=== PATIENT | female | born 1945 | race Caucasian/White ===

== ENCOUNTER 2017-04-19 13:45 | Inpatient (IN) | payer OTHER ==
[~2017-04-19] VITALS: Ht 160 cm; Wt 135.4 kg
--- NOTE | ~2017-04-19 | PR ---
[place], [place] PROGRESS NOTE NAME: VIK THOMAS [facility] #: [id number] UNIT #: [id number] ROOM: 525 DOCTOR: QI ELLSWORTH MD BIRTHDATE: [birth year] DOS: 04/23/2017 SUBJECTIVE: The patient is not having any new problems. OBJECTIVE: VITAL SIGNS: Blood pressure is 119/53, pulse of 84, respirations 18, temperature 98.7. LUNGS: Clear. HEART: Regular. ABDOMEN: Obese, soft, nontender. EXTREMITIES: Without any edema. ASSESSMENT AND PLAN: 1. Acute exacerbation of chronic obstructive pulmonary disease, stable and improved. 2. Morbid obesity. Advised weight loss. May require a sleep study as an outpatient. 3. Benign hypertension, controlled with acute diastolic congestive heart failure, resolved. Repeat chest x-ray is clearer. The plan is to discharge her to home today. QI ELLSWORTH MD CM:PNTRANS [id number] QI ELLSWORTH MD 04/23/17 0820 interface
--- NOTE | ~2017-04-19 | PR ---
[place], [place] PROGRESS NOTE NAME: VIK THOMAS UNIT #: [id number] ROOM: 525 DOCTOR: RUDOLPH QUISPE MD BIRTHDATE: [birth year] DOS: 04/21/2017 PULMONARY PROGRESS NOTE SUBJECTIVE: She has been noted comfortable at this time, was ordered BiPAP for this patient yesterday. The patient not able to use the BiPAP because of the difficulty of the mask fitting. The patient had a CTA of the chest, which was ordered by the Cardiology Services as well, does not show any evidence of pulmonary embolism. OBJECTIVE: VITAL SIGNS: For the patient which were recorded showed the temperature of the patient noted as normal, respiratory rate 22, heart rate 91, blood pressure 137/58. Pulse oxygen saturation of the patient noted on 3 liters nasal cannula 96% saturation. HEENT: Examination shows head was atraumatic. NECK: Supple. Chronic obesity. CARDIOVASCULAR: S1, S2 is audible. LUNGS: The patient was noted with moderate decreased breath sounds noted in the lungs bilaterally with expiratory wheezing. There were no crackles. ABDOMEN: Soft, nontender. EXTREMITIES: Shows chronic obesity. LABORATORY DATA: D-dimer yesterday noted 1.55. The CT of the chest does not show any acute abnormality including any evidence of pulmonary embolism. Arterial blood gas that was done yesterday, 04/20/2017, shows pH of 7.48, pCO2 of 42, pO2 of 59 on room air. IMPRESSION: 1. The patient who has been currently noted with acute exacerbation of chronic obstructive pulmonary disease with acute bronchitis as well as the congestive heart failure with a diastolic dysfunction. 2. Suspected obstructive sleep apnea disorder. PLAN OF MANAGEMENT: She will be continued on the current management plan. She was ordered the senior java web developer mask to be used for the BiPAP. Continue in the meantime bronchodilators with oxygen supplementation, current antibiotics, bronchodilators and IV steroids. Supportive plan and management and care. [place], [place] PROGRESS NOTE NAME: VIK THOMAS UNIT #: [id number] ROOM: 525 DOCTOR: RUDOLPH QUISPE MD BIRTHDATE: [birth year] RUDOLPH BARRIGA MD CM:CARLINETRANS [id number] RUDOLPH BISHOP MD 04/21/17 1031 interface
--- NOTE | ~2017-04-19 | DS ---
[place], [place] DISCHARGE SUMMARY NAME: VIK THOMAS UNIT #: [id number] ROOM: [facility] DOCTOR: JODEE ANGELQI BIRTHDATE: [birth year] DOS: 04/23/2017 DISCHARGE DIAGNOSES: 1. Acute diastolic congestive heart failure. 2. Acute respiratory distress syndrome. 3. Chronic respiratory failure, oxygen dependent. 4. Acute exacerbation of chronic obstructive pulmonary disease. 5. Benign hypertension with LVH. 6. Type 2 diabetes mellitus, diet controlled. 7. Major depression, mild, recurrent. 8. Generalized anxiety disorder. 9. Primary insomnia. DISCHARGE MEDICATIONS: Daliresp 500 mcg daily, Isordil 30 daily, losartan 100 daily, Lasix 40 daily, prednisone 5 tapering dose, zolpidem 5 at bedtime, Xanax 1 mg twice a day, Paxil 10 daily, clonidine 0.1 at bedtime, Requip 1 mg at bedtime, DuoNeb q.6h, Spiriva 2 puffs twice daily, Singulair 10 daily, if she is unable to afford the Daliresp. HOSPITAL COURSE: This 71-year-old patient is very well known to us, comes in with complaints of increasing shortness of breath. Please refer to the H and P for details. She was diagnosed with acute diastolic CHF, was admitted, was placed on diuretics. Cardiology consultation was obtained. Echocardiogram was ordered, which showed LVH with no other major valvular pathology. Cardiology also ordered a CT angiogram, which was negative for PE. Pressures have been controlled and with diuretics, the CHF has resolved, and repeat chest x-ray is clearer. She also had acute exacerbation of COPD, was placed on IV steroids, breathing treatments. Dr. Tinoco was consulted who agreed on the current treatment plan. He did recommend that the patient undergo a sleep study as an outpatient to rule out obstructive sleep apnea. The patient is otherwise stable and is not having any new problems. The plan is to discharge her to home today. I have decided to place her on Daliresp for her underlying COPD, but it might be too expensive and she may not be able to afford. If that is the case, she is advised to go back on Singulair. [place], [place] DISCHARGE SUMMARY NAME: VIK THOMAS UNIT #: [id number] ROOM: 525 DOCTOR: QI ELLSWORTH MD BIRTHDATE: [birth year] QI ELLSWORTH MD CM:BAILEE 0 9 QI ELLSWORTH MD 04/23/17829 interface
--- NOTE | ~2017-04-19 | CON ---
[place], [place] REPORT OF CONSULTATION NAME: VIK THOMAS [facility] #: [id number] UNIT #: [id number] ROOM: 525 DOCTOR: SANDRA LIM MD BIRTHDATE: [birth year] DOS: REQUESTING PHYSICIAN: Dr. Neetu Griffith. REASON FOR CONSULTATION: Chest pain. ASSESSMENT: 1. Current presentation with shortness of breath, dyspnea on exertion, and severe chronic obstructive pulmonary disease exacerbation. 2. Complaint of chest pain, heaviness, tightness radiating to the back. 3. Morbid obesity. 4. Hypertension. 5. Hyperlipidemia. 6. Previous history of tobacco abuse. 7. Early family history of heart disease. PLAN: 1. Cycle cardiac enzymes. 2. Proceed with an echocardiogram. 3. Imdur 30 mg. 4. Lipid management for an LDL less than 70 mg/dL. 5. We will consider a Lexiscan stress test after the patient's lungs status improves and can be done as an outpatient. HISTORY AND PHYSICAL: The patient is a pleasant 71-year-old female unknown to our practice, who was referred by Dr. Griffith for further evaluation of complaint of chest pain, heaviness, tightness. Apparently, the patient has been having severe shortness of breath, dyspnea on exertion, similar to her previous COPD exacerbation for the past 2 weeks. The symptoms got worse and the patient finally presented to the hospital, wants to found out COPD exacerbation status. Today, the patient started complaining of some heaviness, tightness. It did reach 5/10, it does radiate straight to the back with no associated nausea, vomiting or diaphoresis. No relation to activity. It did occur at rest. The patient never had such complaint in the past. She is also almost completely bedridden. No current symptomatic palpitation or any associated dizziness, lightheadedness, or near syncope. The patient does have previous history of symptomatic palpitation or racing heartbeats. The patient usually sleeps upright with definite PND and orthopnea should the patient attempt to lay flat. The patient admits to significant chills over the past few months along with night sweats, but no fevers. Surprisingly, he maintains good appetite. No reported weight loss. Again, the patient appeared to be [employer] almost class 3-4. PAST MEDICAL HISTORY: As detailed above. SOCIAL HISTORY: The patient quit smoking 2 years ago. Prior to that, she smoked almost for 50 years. No heavy alcohol or illicit drug abuse. FAMILY HISTORY: The patient's father had myocardial infarction, congestive heart failure in his 70s. Her mother in her 60s of myocardial infarction. [place], [place] REPORT OF CONSULTATION NAME: VIK THOMAS UNIT #: [id number] ROOM: [facility] DOCTOR: SANDRA LIM MD BIRTHDATE: [birth year] Her father also in his early 60s of congestive heart failure. CURRENT MEDICATIONS: Singulair, Z-GINGER, Axone, Cozaar, hydrochlorothiazide, Ambien, Requip, Solu-Medrol, Catapres, Pulmicort, Xanax, and Lasix. ALLERGIES: The patient has no known drug allergies. REVIEW OF SYSTEMS: Currently, the patient denies any headache, diplopia, or blurry vision. Admits to chills, night sweats, but no fevers. No abdominal pain, no bright blood per rectum, no tarry stools. Admits to joint pain and muscular pain. No anxiety, no depression. No polyuria, no polydipsia, no skin rash. Review of other systems has been negative. PHYSICAL EXAMINATION: GENERAL: The patient is alert, oriented x 3, quite pleasant. The patient sitting up in bed, appeared to be in moderate distress mainly due to shortness of breath, no current chest tightness or heaviness. VITAL SIGNS: Blood pressure 154/70, heart rate 81, respiratory rate of 24, temperature 98.3. HEENT: Extraocular muscles intact. Pupils equal, round, reactive to light. Conjunctivae: No pallor. Throat: No petechiae. NECK: Good carotid upstroke. Faint bruit could be heard on both carotids. No lymphadenopathy, no thyromegaly. HEART: S1, S2 with a systolic ejection murmur right upper sternal border and also holosystolic murmur left upper sternal border. No rub, no sternal heave, loud P2. CHEST AND BACK: No deformities. LUNGS: Severe decrease in air movement. There is significant end expiratory wheezing. There is minimal rhonchi could be heard at the base bilateral. ABDOMEN: Morbidly obese, soft, nontender. Present bowel sounds. Unable to appreciate any masses or bruits. This is a very limited exam. EXTREMITIES: Lower extremities: There is mild 1-2/4 edema on the left lower extremity with mild edema on the right. He has faint distal pulses. NEUROLOGIC: Nonfocal. SKIN: No significant rash. LABORATORY DATA: White count 6.4, hemoglobin 11.8, potassium is 3.7, GFR more than 60. [place], [place] REPORT OF CONSULTATION NAME: VIK THOMAS UNIT #: [id number] ROOM: [facility] DOCTOR: SANDRA LIM MD BIRTHDATE: [birth year] SANDRA LIM MD CM:CONSTR:REPORT OF CONSULTATION 1242 04/20/17 1803 interface
--- NOTE | ~2017-04-19 | PR ---
[place], [place] PROGRESS NOTE NAME: VIK THOMAS [facility] #: [id number] UNIT #: [id number] ROOM: 525 DOCTOR: QI ELLSWORTH MD BIRTHDATE: [birth year] DOS: SUBJECTIVE: The patient is feeling good, does not have any new complaints this morning, shortness of breath is much better. She has not had any chest pains. OBJECTIVE: VITAL SIGNS: Graphic trend shows pressure of 117/56, pulse of 92, respirations 20, temperature 97.5. LUNGS: Clear. HEART: Regular this morning. ABDOMEN: Obese. EXTREMITIES: Without any edema. ASSESSMENT AND PLAN: 1. Acute diastolic congestive heart failure, clinically much improved. We will arrange for a repeat chest x-ray to make sure that the congestive heart failure is clearing. 2. Acute respiratory distress syndrome with chronic respiratory failure, tolerating the BiPAP. 3. Chronic obstructive pulmonary disease with acute exacerbation. Bronchospasm seems to be improving. We will taper the steroids down. Plan is to discharge her to home tomorrow. QI ELLSWORTH MD CM:PNTRANS [id number] QI ELLSWORTH MD 04/22/17 1220 interface
--- NOTE | ~2017-04-19 | PR ---
[place], [place] PROGRESS NOTE NAME: VIK THOMAS [facility] #: [id number] UNIT #: [id number] ROOM: 525 DOCTOR: SANDRA LIM MD BIRTHDATE: [birth year] DOS: 04/23/2017 SUBJECTIVE: The patient is sitting up in bed. Appears to be doing slightly better than yesterday in terms of shortness of breath. The patient denies any more chest pain. The patient continues to complain off and on of some heaviness and tightness. No symptomatic palpitation. OBJECTIVE: VITAL SIGNS: Blood pressure 143/74, heart rate 82, respiratory rate of 22, temperature 97.9. NECK: Good upstroke. No bruit. HEART: S1, S2, with no rub. LUNGS: Diffuse air movement, but still no wheezing, no rales, much improved from previous exam. EXTREMITIES: Lower extremities, mild edema mainly on the left compared to the right. LABORATORY DATA: White count 6.4, hemoglobin 11.8, potassium 3.7, GFR more than 60%, troponin less than 0.015. Echocardiogram showed normal LV function with no wall motion abnormalities. ASSESSMENT AND PLAN: Current presentation with chronic obstructive pulmonary disease exacerbation in a patient who is morbidly obese, but complaining of typical complaint of chest pain, heaviness and tightness. The patient did respond slightly to Imdur 30 mg, but which has continued off and on, slight recurrence of these complaints, for that I will increase Imdur to 60 mg once a day. The patient needs to show some improvement on her pulmonary status. For that, we will continue with current medical regimen and cardiac workup will be scheduled as an outpatient. The patient can be discharged home with early followup with our clinic within 2-4 weeks. Consider pulmonary rehab as an outpatient. Sleep study also should be considered as an outpatient. SANDRA LIM MD CM:PNTRANS [id number] SANDRA LIM MD 04/23/17 1033 interface
--- NOTE | ~2017-04-19 | PR ---
[place], [place] PROGRESS NOTE NAME: VIK THOMAS UNIT #: [id number] ROOM: 525 DOCTOR: RUDOLPH QUISPE MD BIRTHDATE: [birth year] DOS: 04/22/2017 PULMONARY FOLLOWUP SUBJECTIVE: She was still noted shortness of breath at rest. Denies symptoms of chest pain. She has been ordered the BiPAP, but the patient refused to use the BiPAP. She has been noted with mild cough without any sputum expectoration. OBJECTIVE: VITAL SIGNS: Normal temperature, respiratory rate 20, heart rate 93, blood pressure 118/58. Pulse oxygen saturation on 3.5 L nasal cannula 97% saturation. HEENT: Showed no new change. NECK: Supple. CARDIOVASCULAR: S1, S2 is audible. LUNGS: The patient was noted without any wheezing or crackles at the present time. ABDOMEN: Soft and nontender. LABORATORY DATA: The chest x-ray, 1 view, which was done this morning does not show any acute pulmonary infiltration. IMPRESSION: 1. The patient has been currently noted with ongoing acute exacerbation of chronic obstructive pulmonary disease with acute tracheobronchitis. Small pneumonia was suspected in the right upper lobe as well. 2. Chronic severe obesity. 3. She refuses use of BiPAP. 4. Strong suspicion of obstructive sleep apnea disorder with current body habitus. PLAN OF TREATMENT: Discontinue the BiPAP because of noncompliance. Continue other treatment, plan of management at this time. Usual care. All other supportive plan and management and treatment. Any decision changes will be done in the treatment prior to the discharge. [place], [place] PROGRESS NOTE NAME: VIK THOMAS UNIT #: [id number] ROOM: 525 DOCTOR: RUDOLPH QUISPE MD BIRTHDATE: [birth year] RUDOLPH BARRIGA MD CM:PNTRANS [id number] RUDOLPH BISHOP MD 04/22/17 1222 interface
--- NOTE | ~2017-04-19 | WRIGHTHP ---
[place], [place] PATIENT HISTORY AND PHYSICAL EXAM NAME: VIK THOMAS [facility] #: [id number] UNIT #: [id number] ROOM: 525 DOCTOR: QI ELLSWORTH MD BIRTHDATE: [birth year] DOS: 04/19/2017 HISTORY OF PRESENT ILLNESS: The patient is 71 years old. The patient is very well known to us, comes into the office with complaints of increased shortness of breath for the last few days. She has a cough which is productive of scant amounts of sputum. Mostly it is white in color. She denies having any chest pains or palpitations. Does not have any swelling in the legs. Has been taking all her medications regularly. PAST MEDICAL HISTORY: Significant for: 1. Last hospitalization in 11/2016 with hypoxic respiratory failure. 2. COPD. 3. Chronic respiratory failure, oxygen dependent. 4. Benign hypertension. 5. History of esophageal banding for weight loss. 6. Diabetes mellitus type 2. 7. Major depression. 8. Primary insomnia. 9. Generalized anxiety disorder. MEDICATIONS: Medications that she is currently on are breathing treatments every 6, Spiriva 1 puff twice a day, Xanax 1 mg twice a day, clonidine 0.1 mg at bedtime, losartan 25/100 one tablet daily, Singulair 10 daily, Paxil 10 daily, Requip 1 mg at bedtime, zolpidem 5 at bedtime. SOCIAL HISTORY: History of smoking, but quit smoking about 5 years ago. She denies using any alcohol. PHYSICAL EXAMINATION: GENERAL: The patient is awake and alert and oriented. Audible wheezing can be heard. VITAL SIGNS: Shows blood pressure of 142/70, pulse of 86, respirations 20-24, afebrile. HEAD AND NECK: Within normal limits. LUNGS: Diminished breath sounds. Scattered wheezes heard bilaterally. HEART: Regular. ABDOMEN: Obese, soft. EXTREMITIES: Without any edema. ASSESSMENT AND PLAN: 1. Acute respiratory distress syndrome in a patient with chronic respiratory failure, oxygen dependent with acute exacerbation of chronic obstructive pulmonary disease. The patient will be admitted. IV steroids and IV antibiotics have been ordered. Consultation with Dr. Tinoco is obtained. Maximize the bronchodilator regimen. 2. Benign hypertension, controlled. Chest x-ray shows mild acute diastolic congestive heart failure. Echocardiogram was last done in November. It is not 6 months yet, but we will repeat it and consult Cardiology. 3. Primary insomnia. Continue zolpidem. [place], [place] PATIENT HISTORY AND PHYSICAL EXAM [facility] [id number] UNIT #: [id number] ROOM: [facility] DOCTOR: QI ELLSWORTH MD BIRTHDATE: [birth year] QI ELLSWORTH MD CM:HISPHYS:PATIENT HISTORY AND PHYSICAL EXAMINATION [id number] 08 QI ELLSWORTH MD 04/20/17 0803 interface
--- NOTE | ~2017-04-19 | PR ---
[place], [place] PROGRESS NOTE NAME: VIK THOMAS [facility] #: [id number] UNIT #: [id number] ROOM: 525 DOCTOR: SANDRA LIM MD BIRTHDATE: [birth year] DOS: 04/21/2017 SUBJECTIVE: The patient is sitting up in bed today, continued to be slightly short of breath, but there is no further episode of chest tightness, heaviness. This patient is reporting some improvement on her overall lung status. No symptomatic palpitation. OBJECTIVE: VITAL SIGNS: Blood pressure 137/58, heart rate 91, respiratory rate of 22, temperature 97.6. NECK: Good upstroke, no bruit. HEART: S1, S2 with no rub. LUNGS: Decreased air movement, but no markie wheezing or rales. ABDOMEN: Morbidly obese, soft, nontender. EXTREMITIES: Lower extremities. There is 1-2/4 left lower extremity edema. LABORATORY DATA: ABG showing pH of 7.4. PT, OT 59, pCO2 of 142, potassium 3.7, GFR more than 60%. CK 109, MB 2.0, troponin less than 0.015. Total cholesterol 167, triglyceride 78, LDL 91. ASSESSMENT AND PLAN: 1. Current presentation with chronic obstructive pulmonary disease exacerbation of severe shortness of breath. 2. Complaint of classic chest pain, heaviness, tightness in the setting of acute exacerbation of her chronic obstructive pulmonary disease, but never occurred before. So far, the patient's cardiac enzymes have been completely negative for any ischemic event. The patient did respond to Imdur. I am awaiting for the echocardiogram to rule out any wall motion abnormalities. Stress test can be considered later on as an outpatient. No further cardiac testing at this time. SANDRA LIM MD CM:PNTRANS 1042 03 SANDRA LIM MD 04/21/174 interface
--- NOTE | ~2017-04-19 | CON ---
[place], [place] REPORT OF CONSULTATION NAME: VIK THOMAS [facility] #: [id number] UNIT #: [id number] ROOM: 525 DOCTOR: LINUS BISHOP MDRUDOLPH BIRTHDATE: [birth year] DOS: 04/20/2017 REQUESTING PHYSICIAN: Neetu Griffith MD REASON FOR CONSULTATION: To assess the patient for ongoing acute respiratory complaints. HISTORY OF PRESENT ILLNESS: This is a 71-year-old white female known to me from her admission in 11/2016. She was admitted to the hospital at that time for acute exacerbation of COPD and acute severe bronchitis. She has been treated in the hospital with intravenous medications including nebulized bronchodilators. Bronchoscopy was done on 11/13/2016 as well on this admission for removal of the mucous plugs. She was subsequently discharged home. The patient stated that she has noticed symptoms of chronic shortness of breath with intermittent coughing and wheezing. The symptoms have worsened. The patient was recently seen in the office of the primary care physician, Dr. Neetu Griffith. She has been hospitalized from her office on 04/19/2017 because of the progressive respiratory symptoms not resolving with current medical management. She was noted with shortness of breath which is occurring with minimal exertion, also present at rest. The patient does have a cough which has been noted intermittently with small amount of sputum expectoration. Denies symptoms of chest pain. Chest tightness was described. Wheezing was noted by the patient at rest. REVIEW OF SYSTEMS: CONSTITUTIONAL: Fatigue and tiredness noted without symptoms of fever or chills. EYES: Denies any burning, redness or tenderness. EARS, NOSE AND THROAT SYMPTOMS: No sore throat, hoarseness, otalgia or postnasal drainage. CARDIOVASCULAR: Denies anginal pain, edema or pain of the lower extremities, has been noted to have chronic severe obesity. GENITOURINARY: Denies dysuria, suprapubic pain or hematuria. GASTROINTESTINAL: Denies abnormal weight loss or dysphagia. Denies symptoms of nausea, vomiting, diarrhea, abdominal pain, hematemesis, melena or hematochezia. SKIN: Denies lesions or rashes. MUSCULOSKELETAL: Denies acute joint pain, redness or tenderness. CENTRAL NERVOUS SYSTEM: Denies dizziness, diplopia or syncopal episodes. Remaining systems were reviewed with the patient, they were noted all negative. PAST MEDICAL HISTORY: 1. Centrilobular emphysema/COPD. 2. Nicotine dependence. 3. Severe morbid obesity. 4. Type 2 diabetes mellitus. 5. Restless legs syndrome. 6. Essential hypertension. SOCIAL HISTORY: The patient lives at home and she is . The patient does have 3 children. Tobacco use was noted since teenager, half to three-quarter [place], [place] REPORT OF CONSULTATION NAME: VIK THOMAS UNIT #: [id number] ROOM: [facility] DOCTOR: LEXUS QUISPE MDM BIRTHDATE: [birth year] pack of cigarettes per day. The patient has not been smoking cigarettes at the present time. FAMILY HISTORY: Myocardial infarction. PAST SURGICAL HISTORY: 1. Complete hysterectomy. 2. Cholecystectomy and elective laparoscopic banding for the patient for the weight loss at [facility]. 3. Fiberoptic bronchoscopy which was therapeutic in 11/2016. MEDICATIONS: Current administered medications, Singulair, Paxil, losartan, hydrochlorothiazide, clonidine, Requip, Pulmicort Respules via nebulizer, IV Solu-Medrol 30 mg q. 8 hours, Zithromax, Xanax and other medications. DRUG ALLERGY HISTORY: No known drug allergies. PHYSICAL EXAMINATION: GENERAL: This is a 71-year-old female currently noted without any distress, with mild audible wheezing and shortness of breath at rest. VITAL SIGNS: Height of 5 feet 3 inches, weight of 298 pounds, BMI 52.8. Normal temperature, respiratory rate 22-24, heart rate 81-64, blood pressure 154/70 to 147/55. HEENT: Severe chronic obesity. NECK: Supple, short and obese. Severe reduced posterior pharyngeal space, high tongue base and crowding of soft tissue structures. CARDIOVASCULAR: S1, S2 audible. LUNGS: General reduction of breath sounds bilaterally. Expiratory wheezing was present. There were no crackles. ABDOMEN: Soft, obese and nontender. EXTREMITIES: Show chronic severe obesity without any clubbing or cyanosis. LABORATORY DATA: CBC on 04/19/2017, WBC count normal, hemoglobin 11.8, hematocrit 36.8 and platelet count was normal. BMP yesterday, carbon dioxide 38 that was normal. Chest x-ray that was done on 04/19/2017 does not show any acute abnormalities, 1-view. CT scan of the chest that was done today was personally reviewed and compared to the previous CT scan from October 2016. It shows evidence of small infiltration. Ground glass opacity in the right upper lobe. Small ground glass opacity in the left lingular remains unchanged. Small area of basilar atelectasis was also noted. There was no lymphadenopathy. IMPRESSION: 1. The patient who has been currently admitted to the hospital is noted with acute exacerbation of chronic obstructive pulmonary disease and acute tracheobronchitis. Audible wheezing noted with shortness of breath at rest. 2. History of suspected obstructive sleep apnea disorder, very likely. 3. Severe morbid obesity history as well with past laparoscopic banding surgery, but still noted with severe morbid obesity. 4. Previous history of nicotine abuse. 5. Possibility of acute pneumonia, as there is right upper lobe ground glass [place], [place] REPORT OF CONSULTATION NAME: VIK THOMAS UNIT #: [id number] ROOM: [facility] DOCTOR: RUDOLPH QUISPE MD BIRTHDATE: [birth year] opacity, would be considered. The pneumonia would be considered as known aspiration with atypical etiology of the pneumonia. 6. History of type 2 diabetes mellitus. 7. Metabolic alkalosis secondary most likely due to resting hypercarbia. PLAN OF MANAGEMENT: Obtain arterial blood gas on room air to assess the exact ventilatory status as well as the oxygenation. The patient has been getting oxygen supplementation. Supportive care and all other therapy. Other treatment plan of management to be ordered accordingly. BiPAP would be considered for use after review of the arterial blood gasses according to the ABG. Supportive therapy, plan of management and other care as ongoing. RUDOLPH BARRIAG MD CM:CONSTR:REPORT OF CONSULTATION 1146 04/20/17 1239 interface
--- NOTE | ~2017-04-19 | PR ---
[place], [place] PROGRESS NOTE NAME: VIK THOMAS [facility] #: [id number] UNIT #: [id number] ROOM: 525 DOCTOR: QI ELLSWORTH MD BIRTHDATE: [birth year] DOS: 04/21/2017 SUBJECTIVE: The patient is about the same, does not have any new complaints. OBJECTIVE: VITAL SIGNS: Graphic trend shows a pressure of 117/53, pulse of 87, respirations 20, temperature 98.4. LUNGS: Diminished breath sounds, scattered wheezes. HEART: Regular. ABDOMEN: Obese, but soft. EXTREMITIES: Without any edema. PE was ruled out with a negative CT angiogram. Echocardiogram showed normal LV function. CT of the chest does not show any evidence of pneumonia or effusions aneurysms. ASSESSMENT AND PLAN: 1. Acute exacerbation of chronic obstructive pulmonary disease, on IV steroids and antibiotics. 2. Acute respiratory distress syndrome, may benefit from pulmonary rehabilitation. 3. Benign hypertension, controlled with negative cardiac workup so far. Will start her on . QI ELLSWORTH MD CM:PNTRANS 0 8 QI ELLSWORTH MD 04/21/1739 interface
--- NOTE | ~2017-04-19 | PR ---
[place], [place] PROGRESS NOTE NAME: VIK THOMAS [facility] #: [id number] UNIT #: [id number] ROOM: 525 DOCTOR: LINUS BISHOP MD,RUDOLPH BIRTHDATE: [birth year] DOS: 04/23/2017 SUBJECTIVE: The patient has been noted without any ongoing acute new complaints at present time. The patient has now been noted without any symptoms of chest pain or any abdominal pain. The patient's shortness of breath has been noted to be gradually decreased. The BiPAP was discontinued yesterday because of lack of compliance with use of the BiPAP and refuses to use the BiPAP. OBJECTIVE: VITAL SIGNS: Show normal temperature, respiratory rate 22, heart rate of 82 and blood pressure 142/74. HEENT: Shows no acute change. NECK: Supple. CARDIOVASCULAR: S1, S2 audible. LUNGS: No wheezing. There were no crackles. ABDOMEN: Soft, nontender. LABORATORY DATA: No new labs were done today. IMPRESSION: The patient has been currently noted with ongoing acute exacerbation of chronic obstructive pulmonary disease, acute congestive heart failure with diastolic dysfunction and other symptoms. PLAN OF TREATMENT: The patient was planned for discharge home today on oral medications as prepared by Dr. Neetu Griffith. No changes in the treatment at this time immediately will be needed. RUDOLPH BARRIGA MD CM:PNTRANS [id number] RUDOLPH BISHOP MD 04/23/17 1017 interface
[~2017-04-19 13:45] MED LIST: ADVAIR DISKUS 21 DSK INH; AMARYL2 MG PO; AMBIEN PO; AMBIEN5 MG PO; ATENOLOL50 M1 PO; ATENOLOL50 MG; CIPRO500 MG PO; CLONIDINE HYDR0.1 MG PO; DEPRESSION PILL; DOXYCYCLINE100 MG PO; DUONEB 3 MG/3 ML3 M1 INH; FLEXERIL10 MG PO; HYDR25T PO; Hyzaar 25 MG-101 TAB PO; LASIX PO; LASIX20 MG PO; MEDROL DOSEPAK4 MG PO; MOTRIN800 MG PO; PAROXETINE20 MG PO; PAXIL10 MG PO; PAXIL20 MG PO; POTASSIUM; PREDNISOLONE5 MG; PREDNISONE5 MG PO; REQUIP2 M2 PO; VICODIN 500 MG-1 TAB PO; XANAX1 MG PO; XANAX2 MG
[2017-04-19 14:00] VITALS: BP 135/68
[2017-04-19] MEDS ORDERED: HYZAAR 25 MG-101 TA1 PO (14:15)
[2017-04-19] MEDS ORDERED: SPIRIVA RESPIMAT4 GM INH (14:16)
[2017-04-19 16:00] VITALS: BP 147/55
[2017-04-19] MEDS ORDERED: SINGULAIR10 M1 PO (16:09)
[2017-04-19 16:22] LABS: BASO % 0.5 % (0.0-1.0); EOS # 0.1 10*3/uL (0.0-0.4); EOS % 0.8 % (1.0-4.0); HEMOGLOBIN 11.8 g/dl (12.0-16.0); LYMPH # 1.7 10*3/uL (1.3-4.4); LYMPH % 25.7 % (27.0-41.0); MEAN CELL VOLUME 92.8 fl (81.0-99.0); MEAN CORPUSCULAR HGB 30.4 pg (27.0-31.0); MEAN CORPUSCULAR HGB CONC 32.8 g/dl (33.0-37.0); MEAN PLATELET VOLUME 11.3 fl (9.6-12.3); MONO # 0.4 10*3/uL (0.1-1.0); MONO % 6.7 % (3.0-9.0); NEUT # 4.2 10*3/uL (2.3-7.9); PLATELET COUNT AUTOMATED 142 10*3/uL (130-400); RED BLOOD COUNT 3.88 10*6/uL (4.10-5.10); RED CELL DISTRI WIDTH 12.2 % (0-14.5); WHITE BLOOD COUNT 6.4 10*3/uL (4.8-10.8)
[2017-04-19 16:36] LABS: BUN 10 mg/dl (7-24); CARBON DIOXIDE 38 mmol/L (21-32); CHLORIDE 98 mmol/L (98-107); EST GLOM FILT AFRICAN AMERICAN > 60 ml/min; GLUCOSE 93 mg/dL (65-99); POTASSIUM 3.7 mmol/L (3.5-5.1); SODIUM 141 mmol/L (136-145)
[2017-04-19 20:00] VITALS: BP 122/61
[2017-04-20] VITALS: BP 122/48
[2017-04-20 08:00] VITALS: BP 154/70
[2017-04-20 12:00] VITALS: BP 147/61
[2017-04-20 12:29] LABS: ABG BASE EXCESS 7.5 mmol/L (-2.0-2.0); ABG CO2 CONTENT 32.9 mmol/L (23-27); ABG HCO3 31.6 mmol/l (22-26); ABG TEMPERATURE 98.3 F (98.0-99.0); ARTERIAL BLOOD GAS PH 7.48 (7.35-7.45); ARTERIAL BLOOD GAS PO2 59.3 mmHg (80-90)
[2017-04-20 13:38] LABS: CPK 109 U/L (26-192)
[2017-04-20 13:42] LABS: TROPONIN I < 0.015 ng/ml (<0.045)
[2017-04-20 13:44] LABS: CHOLESTEROL 167 mg/dL (<200); HDL CHOLESTEROL 60 mg/dl (40-60); LDL CHOLESTEROL 91 mg/dL (9-159); TRIGLYCERIDES 78 mg/dl (<150); VLDL CHOLESTEROL 16 mg/dL (6-40)
[2017-04-20 16:00] VITALS: BP 139/60
[2017-04-20 20:00] VITALS: BP 138/53
[2017-04-21] VITALS: BP 117/53
[2017-04-21 08:00] VITALS: BP 137/58
[2017-04-21 12:00] VITALS: BP 128/55
[2017-04-21 13:09] LABS: HDL-P (TOTAL) 23.9 umol/L (>=30.5); LDL SIZE 21.4 nm (>20.5); LDL-P 976 nmol/L (<1000); LP-IR SCORE <25 (<=45); SMALL LDL-P 206 nmol/L (<=527)
[2017-04-21 16:00] VITALS: BP 138/69
[2017-04-21 20:00] VITALS: BP 143/72
[2017-04-22] VITALS: BP 117/56
[2017-04-22] MEDS ORDERED: DALI500T PO (07:28)
[2017-04-22 08:00] VITALS: BP 120/69
[2017-04-22 11:39] VITALS: BP 118/58
[2017-04-22 16:00] VITALS: BP 150/65
[2017-04-22 20:00] VITALS: BP 146/76
[2017-04-23] VITALS: BP 119/53
[2017-04-23] MEDS ORDERED: IMDUR SA30 MG PO (07:36)
[2017-04-23] MEDS ORDERED: PREDNISONE5 MG PO (07:36)
[2017-04-23] MEDS ORDERED: LOSARTAN POTAS100 M1 PO (07:36)
[2017-04-23] MEDS ORDERED: LASIX40 MG PO (07:36)
[2017-04-23 08:00] VITALS: BP 143/74
== END 2017-04-23 08:45 | disposition home or self-care (01) | DRG 190 ==
LOC: 5E 13:45
PROVIDERS: Internal Medicine; Internal Medicine Cardiovascular Disease; Internal Medicine Critical Care Medicine
DX: J44.0 Chronic obstructive pulmonary disease with (acute) lower respiratory infection (principal); I50.31 Acute diastolic (congestive) heart failure; J96.10 Chronic respiratory failure, unspecified whether with hypoxia or hypercapnia; Z99.81 Dependence on supplemental oxygen; F33.0 Major depressive disorder, recurrent, mild; Z68.43 Body mass index [BMI] 50.0-59.9, adult; J44.1 Chronic obstructive pulmonary disease with (acute) exacerbation; J20.9 Acute bronchitis, unspecified; E66.01 Morbid (severe) obesity due to excess calories; I11.0 Hypertensive heart disease with heart failure; E11.9 Type 2 diabetes mellitus without complications; G25.81 Restless legs syndrome; F41.1 Generalized anxiety disorder; E78.5 Hyperlipidemia, unspecified; F51.01 Primary insomnia; Z53.29 Procedure and treatment not carried out because of patient's decision for other reasons; Z66 Do not resuscitate; Z87.891 Personal history of nicotine dependence; Z91.19 Patient's noncompliance with other medical treatment and regimen; Z82.49 Family history of ischemic heart disease and other diseases of the circulatory system; Z90.710 Acquired absence of both cervix and uterus; Z90.49 Acquired absence of other specified parts of digestive tract; Z74.01 Bed confinement status